=== PATIENT | male | born 1975 | race American Indian/Alaskan Native ===

== ENCOUNTER 2019-02-14 18:36 | Emergency (ER) | payer OTHER ==
--- NOTE | 2019-02-14 21:23 | Emergency Department Report ---
ED General Adult HPI - General Chief complaint: Pain General Stated complaint: FLU SX Time Seen by Provider: 02/14/19 20:18 Source: patient, EMS Mode of arrival: Stretcher Limitations: No Limitations - History of Present Illness Initial comments: Patient is a 43-year-old -[place] male with past medical history of right below the knee amputation as well as left chronic foot wound, hypertension and diabetes who is presenting with diarrhea for the past 2 weeks. Patient states diarrhea has been dark in color. He states he's had some mild minor nausea and several episodes of vomiting. Patient vomited once today. Patient states she is on vomited twice in the last 2 weeks. Patient states he has a bloated full sensation in the abdomen there is diffuse. Patient's was seen by her primary care physician several days ago and had blood work drawn and the patient was called today to come to the emergency department secondary to a low hemoglobin. Patient states he was recently discharged from [facility] 2 weeks ago. Patient's chronic edema to his scrotum. Patient was there secondary to having a wound to his left foot. Patient denies fevers chills cough cold congestion at this time. - Related Data Previous Rx's Medication Instructions Recorded Last Taken Type Ferrous Sulfate [Ferrous Sulfate 324 mg PO BID #30 tablet. 02/15/19 Unknown Rx 324 MG] Allergies Allergy/AdvReac Type Severity Reaction Status Date / Time No Known Allergies Allergy Unverified 02/14/19 22:14 ED Review of Systems ROS: Stated complaint: FLU SX Other details as noted in HPI Comment: All other systems reviewed and negative ED Past Medical Hx - Past Medical History Previous Medical History?: Yes Hx Hypertension: Yes Hx Diabetes: Yes Additional medical history: L BKA, R foot wound, low h &H. scral decub. - Surgical History Past Surgical History?: Yes Additional Surgical History: l bka , R foot debre, picc line KRYSTAL (Antibiotics) - Medications Home Medications: Home Medications Medication Instructions Recorded Confirmed Last Taken Type Ferrous Sulfate [Ferrous Sulfate 324 mg PO BID #30 tablet. 02/15/19 Unknown Rx 324 MG] ED Physical Exam - General Limitations: No Limitations General appearance: alert, in no apparent distress - Head Head exam: Present: atraumatic, normocephalic - Eye Eye exam: Present: normal appearance, PERRL, EOMI - ENT ENT exam: Present: mucous membranes moist - Neck Neck exam: Present: normal inspection - Respiratory Respiratory exam: Present: normal lung sounds bilaterally. Absent: respiratory distress, wheezes, rales, rhonchi - Cardiovascular Cardiovascular Exam: Present: regular rate, normal rhythm, normal heart sounds. Absent: systolic murmur, diastolic murmur, rubs, gallop - GI/Abdominal GI/Abdominal exam: Present: soft, distended, normal bowel sounds, hyperactive bowel sounds. Absent: tenderness, guarding, rebound - Rectal Rectal exam: Present: deferred - Extremities Exam Extremities exam: Present: normal inspection - Back Exam Back exam: Present: normal inspection - Neurological Exam Neurological exam: Present: alert, oriented X3 - Psychiatric Psychiatric exam: Present: normal affect, normal mood - Skin Skin exam: Present: warm, dry, intact, normal color. Absent: rash ED Course Vital Signs 02/14/19 02/14/19 02/14/19 19:43 20:20 20:30 Temperature 98.4 F Pulse Rate 93 H 92 H 91 H Respiratory 18 12 15 Rate Blood Pressure 152/101 Blood Pressure 148/95 [Left] O2 Sat by Pulse 100 100 100 Oximetry ED Medical Decision Making - Lab Data Result diagrams: 02/14/19 20:47 02/14/19 20:47 Lab Results 02/14/19 02/14/19 02/14/19 Range/Units 20:47 20:47 20:47 WBC 11.7 H (4.5-11.0) K/mm3 RBC 2.75 L (3.65-5.03) M/mm3 Hgb 7.7 L (11.8-15.2) gm/dl Hct 23.8 L (35.5-45.6) % MCV 87 (84-94) fl MCH 28 (28-32) pg MCHC 32 (32-34) % RDW 16.0 H (13.2-15.2) % Plt Count 283 (140-440) K/mm3 Lymph % (Auto) 16.4 (13.4-35.0) % [place] % (Auto) 6.8 (0.0-7.3) % Eos % (Auto) 1.5 (0.0-4.3) % Baso % (Auto) 0.3 (0.0-1.8) % Lymph # 1.9 (1.2-5.4) K/mm3 [place] # 0.8 (0.0-0.8) K/mm3 Eos # 0.2 (0.0-0.4) K/mm3 Baso # 0.0 (0.0-0.1) K/mm3 Seg Neutrophils % 75.0 H (40.0-70.0) % Seg Neutrophils # 8.8 H (1.8-7.7) K/mm3 PT 15.4 H (12.2-14.9) Sec. INR 1.20 H (0.87-1.13) APTT 36.0 (24.2-36.6) Sec. Sodium 137 (137-145) mmol/L Potassium 3.9 (3.6-5.0) mmol/L Chloride 110.3 H (98-107) mmol/L Carbon Dioxide 17 L (22-30) mmol/L Anion Gap 14 mmol/L BUN 37 H (9-20) mg/dL Creatinine 3.1 H (0.8-1.5) mg/dL Estimated GFR 27 ml/min BUN/Creatinine Ratio 12 % Glucose 326 H (75-100) mg/dL Calcium 7.6 L (8.4-10.2) mg/dL Total Bilirubin 0.20 (0.1-1.2) mg/dL AST 9 (5-40) units/L ALT 8 (7-56) units/L Alkaline Phosphatase 125 (35-129) units/L Total Protein 7.5 (6.3-8.2) g/dL Albumin 1.6 L (3.9-5) g/dL Albumin/Globulin Ratio 0.3 % - Radiology Data Ordering Physician: ZACHARY YOUNG MD Date of Service: 02/14/19 Procedure(s): CT abdomen pelvis wo con Accession Number(s): [id number] cc: ZACHARY YOUNG MD CT abdomen pelvis wo con INDICATION: abd bloating and diarrhea. TECHNIQUE: All CT scans at this location are performed using CT dose reduction for ALARA by means of automated exposure control. COMPARISON: None FINDINGS: Small left pleural effusion. Bibasilar atelectasis with focal parenchymal densities in the right base, possibly focal pneumonia. Diffuse anasarca. Liver, gallbladder, spleen, pancreas, kidneys and adrenals are grossly negative but not clearly demonstrated because of the extensive mesenteric edema. Abdominal aorta is normal in size. Pelvis Small amount of ascites in the dependent pelvis. Urinary bladder is thick walled but otherwise negative. No obvious abnormal mass. No acute skeletal lesions. IMPRESSION: 1. Diffuse anasarca. 2. Ill-defined but somewhat focal parenchymal densities in the right base, possibly developing pneumonia. Suggest follow-up. Signer Name: Christiano Santana MD Signed: 02/15/2019 12:08 AM Workstation Name: [email or web address] - Medical Decision Making Sb is a 43-year-old -[place] male with past medical history of will betes hypertension who is a complaining of diarrhea for the past 2 weeks. Patient states diarrhea has been dark in color. Patient was Hemoccult negative here in emergency department. Patient was told to come to the emergency department because of low hemoglobin. Patient's hemoglobin is 7.7 to time. Patient could have had some mild bleeding with the diarrhea however was not present at this time. Patient be started on iron therapy. Iron also should help slows diarrhea. CT of abdomen and pelvis shows no evidence of bowel swelling or infectious process. Patient does have some anasarca which is chronic. Patient has a B and creatinine 37 and 3.1 which is unchanged from previous labs. I was able to speak with one of the physicians at [facility] where he was seen several weeks ago and his being creatinine was similar at that time. Patient be discharged home with follow with GI and nephrology. Critical care attestation.: If time is entered above; I have spent that time in minutes in the direct care of this critically ill patient, excluding procedure time. ED Disposition Clinical Impression: Diarrhea Qualifiers: Diarrhea type: unspecified type Qualified Code(s): R19.7 - Diarrhea, unspecified Anemia Qualifiers: Anemia type: due to chronic kidney disease Chronic kidney disease stage: stage 3 (moderate) Qualified Code(s): N18.3 - Chronic kidney disease, stage 3 (moderate); D63.1 - Anemia in chronic kidney disease Edema Qualifiers: Edema type: generalized Qualified Code(s): R60.1 - Generalized edema Disposition: DC-01 TO HOME OR SELFCARE Is pt being admited?: No Does the pt Need Aspirin: No Condition: Stable Instructions: Anemia (ED), Acute Diarrhea (ED) Additional Instructions: Please follow up with the district plant engineer to have your kidneys further evaluated. Your generalized swelling and anemia is likely secondary to your kidney dysfunction. Prescriptions: Ferrous Sulfate [Ferrous Sulfate 324 MG] 324 mg PO BID #30 tablet.dr Referrals: [facility] [Provider Group] - 3-5 Days NENA SANTO MD [Staff Physician] - 3-5 Days (nephrology (kidney doctor)) Time of Disposition: 01:43
[2019-02-14 21:27] LABS: Basophils % (Auto) 0.3 % (0.0-1.8); Eosinophils # (Auto) 0.2 K/mm3 (0.0-0.4); Eosinophils % (Auto) 1.5 % (0.0-4.3); Hematocrit 23.8 % (35.5-45.6); Hemoglobin 7.7 gm/dl (11.8-15.2); Lymphocytes # (Auto) 1.9 K/mm3 (1.2-5.4); Lymphocytes % (Auto) 16.4 % (13.4-35.0); Mean Corpuscular HGB Conc 32 % (32-34); Mean Corpuscular Volume 87 fl (84-94); Monocytes # (Auto) 0.8 K/mm3 (0.0-0.8); Monocytes % (Auto) 6.8 % (0.0-7.3); Platelet Count 283 K/mm3 (140-440); Red Blood Count 2.75 M/mm3 (3.65-5.03)
[2019-02-14 21:36] LABS: Albumin 1.6 g/dL (3.9-5); Calcium 7.6 mg/dL (8.4-10.2)
[2019-02-14 21:38] LABS: INR 1.2 (0.87-1.13)
[2019-02-14] MEDS ORDERED: SODIUM CHLORIDE 0.9% 1000 ML 1,000 ML IV ONE (23:26)
--- NOTE | 2019-02-15 00:12 | Cat Scan Report ---
CT abdomen pelvis wo con INDICATION: abd bloating and diarrhea. TECHNIQUE: All CT scans at this location are performed using CT dose reduction for ALARA by means of automated e xposure control. COMPARISON: None FINDINGS: Small left pleural effusion. Bibasilar atelectasis with focal parenchymal densities in the right base , possibly focal pneumonia. Diffuse anasarca. Liver, gallbladder, spleen, pancreas, kidneys and adrenals are grossly negative but not clearly demonstrated because of the extensive mesenteric edema. Abdominal aorta is normal in siz e. Pelvis Small amount of ascites in the dependent pelvis. Urinary bladder is thick walled but otherwise negati ve. No obvious abnormal mass. No acute skeletal lesions. IMPRESSION: 1. Diffuse anasarca. 2. Ill-defined but somewhat focal parenchymal densities in the right base, possibly developing pneumo yani. Suggest follow-up. Signer Name: Christiano Santana MD Signed: 02/15/2019 12:08 AM Workstation Name: [email or web address]
[2019-02-15 04:57] VITALS: BP 146/93
== END 2019-02-15 04:57 | disposition home or self-care (01) ==
LOC: ED 18:36
DX: R19.7 Diarrhea, unspecified (principal); R11.2 Nausea with vomiting, unspecified; D64.9 Anemia, unspecified; R60.9 Edema, unspecified; I10 Essential (primary) hypertension; E11.9 Type 2 diabetes mellitus without complications; Z98.890 Other specified postprocedural states
CPT/HCPCS: 36415; 74176; 80053; 85025; 85610; 85730; 96360; 99284; J7030